=== PATIENT | female | born 1990 | race Caucasian/White ===

== ENCOUNTER 2024-10-19 11:13 | Emergency (ER) | payer BC, SELFPAY ==
[2024-10-19 11:21] VITALS: BP 174/101
--- NOTE | 2024-10-19 13:05 | ED.GENMED ---
History of Present Illness
General
Chief Complaint: Musculo-Skeletal Complaint
Source: patient
Exam Limitations: none
Time Seen by Provider: 10/19/24 13:01
Nursing documentation reviewed up to this point in time: agreed with
History of Present Illness
History of Present Illness:
Patient is a 34-year-old female approximately 28 weeks reports she tripped and twisted her right ankle prior to arrival. She landed on her left knee and left lower leg. She complains of pain to the left lower leg and left posterior
thigh.. Triage note reports that she complained of wrist pain however she denies having any wrist pain. She reports she landed on her hands but has no pain she also states she twisted her right ankle but that does not hurt her. Her primary
complaint is pain to left lower leg and pain behind her left posterior thigh.
She denies hitting her head denies hitting her abdomen no cramping or bleeding.
Phy Exam
General Physical Exam
General Presentation: no apparent distress
General age: appears stated age
General Skin: warm and dry
General Habitus: normal
General Mental: alert
Neurological Exam
Neurological Exam: alert and oriented x3
Musculoskeletal Exam
Musculoskeletal Exam: other (No bony tenderness to bilateral wrist hands and right and left ankle. Patient with abrasion to anterior left lower leg mildly tender over the tib-fib area; able to flex knee able to lift leg off the stretcher no bony
tenderness to femur)
Skin Exam
Skin Exam: normal color and warm/dry
Psychiatric Exam
Psychiatric Exam: normal mood/affect
Course
Orders/Labs/Results
Orders:
Orders
10/19/24 13:05
Femur, Left 2 View [CR Femur - Left Min 2 Vw] Urgent
Comment:
Reason For Exam: trauma
Tib/Fib, Left 2 View [CR Leg Tibia/fibula Left 2 Vw] Urgent
Comment:
Reason For Exam: trauma
10/19/24 13:15
Heart Tones ONCE
10/19/24 14:48
Vital Signs- Treatment ONCE
Frequency: Once
Vital Signs
Initial and Last Documented VS:
Initial Vital Signs
Temp Pulse Resp BP Pulse Ox
97.8 F 99 18 174/101 98
10/19/24 11:21 10/19/24 11:21 10/19/24 11:21 10/19/24 11:21 10/19/24 11:21
Last Documented Vital Signs
Temp Pulse Resp BP Pulse Ox
97.8 F 81 18 126/80 99
10/19/24 11:21 10/19/24 15:06 10/19/24 11:21 10/19/24 15:06 10/19/24 15:06
MDM/Problems Addressed
Differential Diagnosis Includes:
Not limited to contusion abrasion less likely fracture
MDM/Problems Addressed:
Patient is a 27 female mechanical fall landing on her left leg. She complains of discomfort to the left lower leg and left thigh. Small bruising to left lower leg however x-rays negative. She initially complained that she twisted her
right ankle but is no pain and has no pain in her wrist. She denies hitting her head she did not hit her belly. Denies any vaginal bleeding. heart tones obtained by myself with a heart rate of 160. Patient in no acute distress mechanical
fall with abrasion contusion instructions given. Tetanus is up-to-date given to her last year.
Chronic conditions affecting care:
28-week
*Pulse Oximetry
SaO2: 98
Oxygen Mode of Delivery: Room air
Patient hypoxic: no
*Critical Care Note
Total Time (30-74mins, 75-104mins- exclusive of procedures): Not Applicable
ED Attending Note
-
Portions of this chart may have been created with voice recognition software.� Occasional wrong word or��sound alike� substitutions may have occurred due to the inherent limitations of voice recognition software.
Discharge Plan
Departure
Patient Disposition: Home (Routine Discharge)
Date of Disposition: 10/19/24
Time of Disposition: 15:24
Patient with high blood pressure during this ER visit?: Yes
Condition: Fair
Covid-19: Not Applicable
Discharge Problem:
Contusion, Abrasion
Instructions: Contusion (DC), Abrasions - ED discharge instructions
Referrals:
Misha Naqvi DO [Family Provider, Family Practice]
Activity Restrictions/Additional Instructions:
As discussed ice the affected areas for the next 24 hours 20 minutes at a time several times a day. Wash abrasions with soap and water pat dry and apply antibiotic to the area. See your family doctor in the next several days for reevaluation.
Your initial blood pressure here in the ER was elevated however repeat was normal. Please follow-up with your family doctor and side piece coverer for repeat blood pressure in the next several days. Return if any worsening of symptoms.
Interventions
Interventions:
*Risk Screen - Suicide Last Done: 10/19/24 11:21
*General Assessment Last Done: 10/19/24 11:21
*Neglect/Abuse Screening Last Done: 10/19/24 11:21
*Nursing Disposition Last Done: 10/19/24 16:04
ED-Musculoskeletal Assessment Last Done: 10/19/24 15:08
Discharge Date and Time
Discharge Date/Time: 10/19/24 16:04
Print Language: TUVAL[place]
[2024-10-19 15:06] VITALS: BP 126/80
== END 2024-10-19 16:04 | disposition home or self-care (01) ==
LOC: EMR 11:13
PROVIDERS: EMERGENCY PHYSICIAN Emergency Medicine; FAMILY PHYSICIAN Family Medicine
DX: O99.891 Other specified diseases and conditions complicating pregnancy (principal); S80.12XA Contusion of left lower leg, initial encounter; X50.1XXA Overexertion from prolonged static or awkward postures, initial encounter; Z3A.28 28 weeks gestation of pregnancy
CPT/HCPCS: 99283; 73552; 73590